=== PATIENT | female | born 1950 | race Caucasian/White ===

== ENCOUNTER 2023-07-17 18:39 | Inpatient (IN) | payer MEDICARE, OTHER ==
[~2023-07-17] VITALS: Ht 167.6 cm; Wt 98.4 kg
[2023-07-17] MEDS ORDERED: CHOL12502 PO (19:56)
[2023-07-17] MEDS ORDERED: LOSA100T31 PO (19:56)
[2023-07-17] MEDS ORDERED: MAGN400T8 PO (19:56)
[2023-07-17] MEDS ORDERED: AMLO-213 PO (19:56)
[2023-07-17] MEDS ORDERED: FAMO20TA8 PO (19:56)
[2023-07-17] MEDS ORDERED: BISA10SU11 RC (19:56)
[2023-07-17] MEDS ORDERED: B CO1TAB6 PO (19:56)
[2023-07-17] MEDS ORDERED: ASPI-1169 PO (19:56)
[2023-07-17] MEDS ORDERED: MINE133E RC (19:56)
[2023-07-17] MEDS ORDERED: ACET325T53 PO (19:56)
[2023-07-17] MEDS ORDERED: MAGN400O6 PO ×2 (19:56)
[2023-07-17] MEDS ORDERED: METO-357 PO (19:56)
[2023-07-17] MEDS ORDERED: MIRT-90 PO (19:56)
[2023-07-17] MEDS ORDERED: OXYC5TAB3 PO (19:56)
[2023-07-17] MEDS ORDERED: NIFE-34 PO (19:56)
[2023-07-17] MEDS ORDERED: VITS42.53 TP (19:56)
[2023-07-17 20:02] LABS: BASOPHILS % (AUTO) 0.4 % (0.0-2.0); EOSINOPHILS # (AUTO) 0.1 K/uL (0.0-0.7); EOSINOPHILS % (AUTO) 1.1 % (0.0-6.0); HEMATOCRIT 44 % (33-45); HEMOGLOBIN 14.8 g/dL (11.5-14.8); LYMPHOCYTES # (AUTO) 2.8 K/uL (0.8-4.8); LYMPHOCYTES % (AUTO) 36.2 % (20.0-44.0); MEAN CORPUSCULAR HEMOGLOBIN 30 PG (26.0-33.0); MEAN CORPUSCULAR HGB CONC 33 g/dl (31.0-36.0); MEAN CORPUSCULAR VOLUME 90 fL (82-100); MONOCYTES # (AUTO) 0.6 K/uL (0.1-1.30); MONOCYTES % (AUTO) 7.8 % (2.0-12.0); NEUTROPHILS # (AUTO) 4.3 K/uL (1.8-8.9); NEUTROPHILS % (AUTO) 54.5 % (43.0-81.0); PLATELET COUNT (AUTO) 150 K/uL (150-450); RED BLOOD CELL COUNT(AUTO) 4.92 MIL/uL (4.0-5.2); RED CELL DISTRIBUTION WIDTH 14.5 % (11.5-15.0); WHITE BLOOD COUNT (AUTO) 7.8 K/uL (4.3-11.0)
[2023-07-17 20:14] LABS: CALCIUM, SERUM 8.9 mg/dL (8.5-10.1); CARBON DIOXIDE 30 mmol/L (21-32); CHLORIDE 107 mmol/L (98-107); CREATININE 1.3 mg/dL (0.6-1.3); GLUCOSE 96 mg/dL (74-106); POTASSIUM 3.5 mmol/L (3.5-5.1); SODIUM SERUM 141 mmol/L (136-145); UREA NITROGEN, BLOOD 25 mg/dL (7-18)
[2023-07-17 20:15] LABS: APPEARANCE,URINE CLEAR (CLEAR); BILIRUBIN,URINE NEGATIVE (NEGATIVE); BLOOD, URINE NEGATIVE Ery/uL (NEGATIVE); COLOR,URINE YELLOW (YELLOW); KETONES,URINE NEGATIVE (NEGATIVE); LEUKOCYTE ESTERASE ,URINE 2+ (NEGATIVE); NITRITE, URINE POSITIVE (NEGATIVE); PROTEIN,URINE NEGATIVE (NEGATIVE); UGLUCOSE NEGATIVE (NEGATIVE); UROBILINOGEN,URINE 0.2 EU/dL (0.2)
[2023-07-17] MEDS ORDERED: ACETAMINOPHEN ES 500 MG TABLET ONE (20:21)
[2023-07-17 20:29] LABS: AMPHETAMINE, URINE NEGATIVE (NEGATIVE); BARBITURATE, URINE NEGATIVE (NEGATIVE); BENZODIAZEPINE, URINE NEGATIVE (NEGATIVE); CANNABINOID, URINE NEGATIVE (NEGATIVE); COCCAINE, URINE NEGATIVE (NEGATIVE); OPIATE, URINE NEGATIVE (NEGATIVE); PHENCYCLIDINE SCREEN,URINE NEGATIVE (NEGATIVE)
[2023-07-17] MEDS: ACETAMINOPHEN ES 500 MG TABLET PO ONE (20:36)
[2023-07-17 20:37] LABS: ALANINE AMINOTRANSFERASE 30 U/L (12-78); ALBUMIN 3.4 g/dL (3.4-5.0); ALCOHOL, BLOOD < 3 mg/dL (0-10); ALKALINE PHOSPHATASE 115 U/L (46-116); ASPARTATE AMINOTRANSFERASE 32 U/L (15-37); BILIRUBIN,DIRECT 0.2 mg/dL (0.0-0.2); BILIRUBIN,TOTAL 0.6 mg/dL (0.2-1.0); TOTAL PROTEIN, SERUM 7.8 g/dL (6.4-8.2)
[2023-07-17 20:38] LABS: ACETAMINOPHEN <10 ug/ml (10-30); SALICYLATE 1.2 mg/dL (2.8-20.0)
[2023-07-17 20:49] LABS: ADD URINE CULTURE YES; BACTERIA,URINE 4+ /HPF (None Seen); RBC,URINE 0-2 /HPF (0-2); SQUAMOUS EPITHELIAL CELL,UR 0-2 /HPF (None Seen); WBC,URINE 21-50 /HPF (0-3)
[2023-07-17] MEDS: NITROFURANTOIN/MONOHYDRATE MACROCRYSTALS 100 MG CAPSULE PO ONE (21:00)
[2023-07-17] MEDS ORDERED: BISACODYL SUPP (10 MG) 10 MG/SUPP.RECT SUPP.RECT RC PRN (23:30)
[2023-07-18] MEDS ORDERED: NITROFURANTOIN/MONOHYDRATE MACROCRYSTALS 100 MG CAPSULE ONE (01:13)
[2023-07-18] MEDS ORDERED: QUETIAPINE FUMARATE 25 MG TABLET PO PRN (04:00)
[2023-07-18] MEDS ORDERED: MAGNESIUM HYDROXIDE 30 ML UDC PO PRN (04:00)
[2023-07-18] MEDS ORDERED: MAG HYDROX/AL HYDROX/SIMETH 30 ML UDC PO PRN (04:00)
[2023-07-18] MEDS: BLOOD SUGAR DIAGNOSTIC 1 EACH STRIP IN ONE (04:47)
[2023-07-18] MEDS: ACETAMINOPHEN 325 MG TABLET PO PRN (04:47)
[2023-07-18 08:00] VITALS: BP 98/68; TEMP 97.7; O2SAT 97
[2023-07-18] MEDS: NITROFURANTOIN/MONOHYDRATE MACROCRYSTALS 100 MG CAPSULE PO SCH (08:33)
[2023-07-18] MEDS: ASPIRIN 81 MG TAB.CHEW PO SCH (08:33)
[2023-07-18] MEDS: METOPROLOL SUCCINATE 50 MG TAB.SR.24H PO SCH (08:35)
[2023-07-18] MEDS: AMLODIPINE BESYLATE 10 MG TABLET PO SCH (08:35)
[2023-07-18] MEDS: VITAMINS A AND D 56.7 GM TUBE TP SCH (09:00)
[2023-07-18 16:00] VITALS: BP 127/82; TEMP 98.2; O2SAT 98
[2023-07-18 20:00] VITALS: BP_SYST 110; BP_SYST 134; BP_DIAS 65; BP_DIAS 70; TEMP 97.8; TEMP 98.4; O2SAT 97; O2SAT 98
[2023-07-18] MEDS: QUETIAPINE FUMARATE 25 MG TABLET PO SCH (21:54)
[2023-07-18] MEDS: FAMOTIDINE (20 MG) 20 MG TABLET PO SCH (21:54)
[2023-07-19 07:17] LABS: BASOPHILS % (AUTO) 0.6 % (0.0-2.0); EOSINOPHILS # (AUTO) 0.1 K/uL (0.0-0.7); EOSINOPHILS % (AUTO) 1.3 % (0.0-6.0); HEMATOCRIT 40 % (33-45); HEMOGLOBIN 13.5 g/dL (11.5-14.8); LYMPHOCYTES % (AUTO) 40.6 % (20.0-44.0); MEAN CORPUSCULAR HEMOGLOBIN 31 PG (26.0-33.0); MEAN CORPUSCULAR HGB CONC 34 g/dl (31.0-36.0); MEAN CORPUSCULAR VOLUME 90 fL (82-100); MONOCYTES # (AUTO) 0.7 K/uL (0.1-1.30); MONOCYTES % (AUTO) 10.1 % (2.0-12.0); NEUTROPHILS # (AUTO) 3.5 K/uL (1.8-8.9); NEUTROPHILS % (AUTO) 47.4 % (43.0-81.0); PLATELET COUNT (AUTO) 157 K/uL (150-450); RED BLOOD CELL COUNT(AUTO) 4.39 MIL/uL (4.0-5.2); RED CELL DISTRIBUTION WIDTH 14.2 % (11.5-15.0); WHITE BLOOD COUNT (AUTO) 7.3 K/uL (4.3-11.0)
[2023-07-19 07:42] LABS: CARBON DIOXIDE 26 mmol/L (21-32); CHLORIDE 109 mmol/L (98-107); GLUCOSE 95 mg/dL (74-106); POTASSIUM 3.7 mmol/L (3.5-5.1); SODIUM SERUM 141 mmol/L (136-145); UREA NITROGEN, BLOOD 22 mg/dL (7-18)
[2023-07-19 07:50] LABS: CHOLESTEROL 135 mg/dL (<200); HDL CHOLESTEROL 64 mg/dL (40-60); LDL 56 mg/dL (0-99); TRIGLYCERIDES 66 mg/dL (30-150)
[2023-07-19] MEDS: OXCARBAZEPINE 150 MG TABLET PO SCH (15:52)
[2023-07-19 20:00] VITALS: BP 144/96; TEMP 98.5; O2SAT 96
[2023-07-20 08:00] VITALS: BP 140/84; TEMP 98.6; O2SAT 96
[2023-07-20 16:00] VITALS: BP 125/50; TEMP 98.4; O2SAT 96
[2023-07-20 20:50] VITALS: BP 128/79; TEMP 98.2; O2SAT 96
[2023-07-21 08:00] VITALS: BP 148/96; TEMP 98.8; O2SAT 96
[2023-07-21 15:30] VITALS: BP 137/84; TEMP 98.1; O2SAT 97
[2023-07-21] MEDS: QUETIAPINE FUMARATE 25 MG TABLET PO SCH (21:04)
[2023-07-21 21:53] VITALS: BP 113/66; TEMP 98.4; O2SAT 97
[2023-07-22 08:00] VITALS: BP 145/87; TEMP 97.9; O2SAT 96
[2023-07-22 16:00] VITALS: BP 137/87; TEMP 97.9; O2SAT 99
[2023-07-22 20:03] VITALS: BP 126/80; TEMP 97.9; O2SAT 97
[2023-07-22 20:45] VITALS: BP 126/80; TEMP 97.9; O2SAT 97
[2023-07-22] MEDS: ZOLPIDEM TARTRATE 5 MG TABLET PO PRN (20:54)
[2023-07-23 08:00] VITALS: BP 149/91; TEMP 98.1; O2SAT 98
[2023-07-23 16:00] VITALS: BP 136/89; TEMP 98.1; O2SAT 96
[2023-07-23 20:00] VITALS: BP 138/92; TEMP 97.8; O2SAT 99
[2023-07-24 07:39] LABS: BASOPHILS % (AUTO) 0.6 % (0.0-2.0); EOSINOPHILS # (AUTO) 0.1 K/uL (0.0-0.7); EOSINOPHILS % (AUTO) 1.4 % (0.0-6.0); HEMATOCRIT 40 % (33-45); HEMOGLOBIN 13.3 g/dL (11.5-14.8); LYMPHOCYTES # (AUTO) 2.9 K/uL (0.8-4.8); LYMPHOCYTES % (AUTO) 38.6 % (20.0-44.0); MEAN CORPUSCULAR HEMOGLOBIN 30 PG (26.0-33.0); MEAN CORPUSCULAR HGB CONC 33 g/dl (31.0-36.0); MEAN CORPUSCULAR VOLUME 90 fL (82-100); MONOCYTES # (AUTO) 0.7 K/uL (0.1-1.30); MONOCYTES % (AUTO) 9.4 % (2.0-12.0); NEUTROPHILS # (AUTO) 3.7 K/uL (1.8-8.9); PLATELET COUNT (AUTO) 164 K/uL (150-450); RED BLOOD CELL COUNT(AUTO) 4.44 MIL/uL (4.0-5.2); RED CELL DISTRIBUTION WIDTH 14.4 % (11.5-15.0); WHITE BLOOD COUNT (AUTO) 7.4 K/uL (4.3-11.0)
[2023-07-24 08:14] LABS: MAGNESIUM 1.9 mg/dL (1.8-2.4); PHOSPHORUS 3.6 mg/dL (2.5-4.9)
[2023-07-24 08:35] VITALS: BP 147/98
[2023-07-24 08:37] LABS: ALANINE AMINOTRANSFERASE 20 U/L (12-78); ALBUMIN 3.1 g/dL (3.4-5.0); ALKALINE PHOSPHATASE 112 U/L (46-116); ASPARTATE AMINOTRANSFERASE 18 U/L (15-37); BILIRUBIN,TOTAL 0.5 mg/dL (0.2-1.0); CALCIUM, SERUM 9.1 mg/dL (8.5-10.1); CARBON DIOXIDE 27 mmol/L (21-32); CHLORIDE 107 mmol/L (98-107); CREATININE 1.3 mg/dL (0.6-1.3); GLUCOSE 94 mg/dL (74-106); POTASSIUM 3.5 mmol/L (3.5-5.1); SODIUM SERUM 140 mmol/L (136-145); TOTAL PROTEIN, SERUM 7.1 g/dL (6.4-8.2); UREA NITROGEN, BLOOD 29 mg/dL (7-18)
== END 2023-07-24 14:05 | DRG 885 ==
LOC: ER 18:46 → GPS 07-18 00:57
PROVIDERS: ADMIT Psychiatry & Neurology Psychiatry; ATTEND Nurse Practitioner Acute Care
DX: F29 Unspecified psychosis not due to a substance or known physiological condition (principal); B19.20 Unspecified viral hepatitis C without hepatic coma; N39.0 Urinary tract infection, site not specified; F03.918 Unspecified dementia, unspecified severity, with other behavioral disturbance; F03.92 Unspecified dementia, unspecified severity, with psychotic disturbance; F03.93 Unspecified dementia, unspecified severity, with mood disturbance; F03.94 Unspecified dementia, unspecified severity, with anxiety; G45.9 Transient cerebral ischemic attack, unspecified; F39 Unspecified mood [affective] disorder; K21.9 Gastro-esophageal reflux disease without esophagitis; J44.9 Chronic obstructive pulmonary disease, unspecified; I73.9 Peripheral vascular disease, unspecified; M48.00 Spinal stenosis, site unspecified; M50.90 Cervical disc disorder, unspecified, unspecified cervical region; F41.9 Anxiety disorder, unspecified; M50.30 Other cervical disc degeneration, unspecified cervical region; M48.02 Spinal stenosis, cervical region; E78.5 Hyperlipidemia, unspecified; M19.90 Unspecified osteoarthritis, unspecified site; Z95.0 Presence of cardiac pacemaker; Z86.73 Personal history of transient ischemic attack (TIA), and cerebral infarction without residual deficits; Z79.899 Other long term (current) drug therapy; I49.5 Sick sinus syndrome; Z86.79 Personal history of other diseases of the circulatory system; G89.29 Other chronic pain; I10 Essential (primary) hypertension; Z73.6 Limitation of activities due to disability; B96.89 Other specified bacterial agents as the cause of diseases classified elsewhere; F32.A Depression, unspecified; R42 Dizziness and giddiness
CPT/HCPCS: 36415; 80048-TC; 80053-TC; 80061-TC; 80076-TC; 81001; 82962-TC; 83735-TC; 84100-TC; 85025-TC; 87081-TC; 87086-TC; 97112-TC; 97116-TC; 97530-TC; G0480

== ENCOUNTER 2024-06-18 15:07 | Inpatient (IN) | payer MEDICARE, OTHER ==
[~2024-06-18] VITALS: Ht 167.6 cm; Wt 81.6 kg
[~2024-06-18 15:07] MED LIST: ACET325T53 PO; AMLO-213 PO; ASPI-1169 PO; B CO1TAB6 PO; BISA10SU11 RC; CHOL12502 PO; FAMO20TA8 PO; LOSA100T31 PO; MAGN400O6 PO; MAGN400T8 PO; METO-357 PO; MINE133E RC; NIFE-34 PO; OXYC5TAB3 PO; VITS42.53 TP
[2024-06-18] MEDS ORDERED: OLANZAPINE 10 MG VIAL IM ONE (15:30)
[2024-06-18] MEDS ORDERED: LORAZEPAM INJ 2 MG/ML VIAL ONE (15:31)
[2024-06-18 15:33] LABS: BASOPHILS # (AUTO) 0.1 K/uL (0.0-0.2); BASOPHILS % (AUTO) 0.8 % (0.0-2.0); EOSINOPHILS # (AUTO) 0.1 K/uL (0.0-0.7); EOSINOPHILS % (AUTO) 0.8 % (0.0-6.0); HEMATOCRIT 43 % (33-45); HEMOGLOBIN 14.7 g/dL (11.5-14.8); LYMPHOCYTES # (AUTO) 3.4 K/uL (0.8-4.8); LYMPHOCYTES % (AUTO) 45.2 % (20.0-44.0); MEAN CORPUSCULAR HEMOGLOBIN 32 PG (26.0-33.0); MEAN CORPUSCULAR HGB CONC 34 g/dl (31.0-36.0); MEAN CORPUSCULAR VOLUME 94 fL (82-100); MONOCYTES # (AUTO) 0.8 K/uL (0.1-1.30); MONOCYTES % (AUTO) 10.8 % (2.0-12.0); NEUTROPHILS # (AUTO) 3.1 K/uL (1.8-8.9); NEUTROPHILS % (AUTO) 42.4 % (43.0-81.0); PLATELET COUNT (AUTO) 154 K/uL (150-450); RED BLOOD CELL COUNT(AUTO) 4.59 MIL/uL (4.0-5.2); RED CELL DISTRIBUTION WIDTH 14.4 % (11.5-15.0); WHITE BLOOD COUNT (AUTO) 7.4 K/uL (4.3-11.0)
[2024-06-18] MEDS: LORAZEPAM INJ 2 MG/ML VIAL IM ONE (15:40)
[2024-06-18 15:46] LABS: CALCIUM, SERUM 9.5 mg/dL (8.5-10.1); CARBON DIOXIDE 29 mmol/L (21-32); CHLORIDE 103 mmol/L (98-107); CREATININE 1.2 mg/dL (0.6-1.3); GLUCOSE 99 mg/dL (74-106); POTASSIUM 3.9 mmol/L (3.5-5.1); SODIUM SERUM 140 mmol/L (136-145); UREA NITROGEN, BLOOD 32 mg/dL (7-18)
[2024-06-18] MEDS: OLANZAPINE 10 MG VIAL IM ONE (15:46)
[2024-06-18 15:52] LABS: ALANINE AMINOTRANSFERASE 25 U/L (12-78); ALBUMIN 3.1 g/dL (3.4-5.0); ALCOHOL, BLOOD < 3 mg/dL (0-10); ALKALINE PHOSPHATASE 86 U/L (46-116); ASPARTATE AMINOTRANSFERASE 38 U/L (15-37); BILIRUBIN,DIRECT 0.2 mg/dL (0.0-0.2); BILIRUBIN,TOTAL 0.4 mg/dL (0.2-1.0); TOTAL PROTEIN, SERUM 7.6 g/dL (6.4-8.2)
[2024-06-18 15:59] LABS: ACETAMINOPHEN 0 ug/ml (10-30); SALICYLATE 1.8 mg/dL (2.8-20.0)
[2024-06-18 16:30] LABS: AMPHETAMINE, URINE NEGATIVE (NEGATIVE); BARBITURATE, URINE NEGATIVE (NEGATIVE); BENZODIAZEPINE, URINE NEGATIVE (NEGATIVE); CANNABINOID, URINE NEGATIVE (NEGATIVE); COCCAINE, URINE NEGATIVE (NEGATIVE); OPIATE, URINE NEGATIVE (NEGATIVE); PHENCYCLIDINE SCREEN,URINE NEGATIVE (NEGATIVE)
[2024-06-18 16:33] LABS: APPEARANCE,URINE SLIGHTLY CLOUDY (CLEAR); BILIRUBIN,URINE NEGATIVE (NEGATIVE); BLOOD, URINE TRACE-INTA Ery/uL (NEGATIVE); COLOR,URINE YELLOW (YELLOW); KETONES,URINE NEGATIVE (NEGATIVE); LEUKOCYTE ESTERASE ,URINE NEGATIVE (NEGATIVE); NITRITE, URINE POSITIVE (NEGATIVE); PROTEIN,URINE NEGATIVE (NEGATIVE); UGLUCOSE NEGATIVE (NEGATIVE); UROBILINOGEN,URINE 0.2 EU/dL (0.2)
[2024-06-18] MEDS ORDERED: GABA-532 PO (17:15)
[2024-06-18] MEDS ORDERED: NA P133E RC (17:15)
[2024-06-18] MEDS ORDERED: CHOL200059 PO (17:15)
[2024-06-18] MEDS ORDERED: TRIA1TAB98 PO (17:15)
[2024-06-18] MEDS ORDERED: CRAN425C6 PO (17:15)
[2024-06-18] MEDS ORDERED: DIVA250T4 PO (17:15)
[2024-06-18] MEDS ORDERED: DIVA125T2 PO (17:15)
[2024-06-18] MEDS ORDERED: FAMO40TA7 PO (17:15)
[2024-06-18] MEDS ORDERED: NIFE90TA61 PO (17:15)
[2024-06-18 17:31] LABS: ADD URINE CULTURE YES; BACTERIA,URINE 4+ /HPF (None Seen); SQUAMOUS EPITHELIAL CELL,UR 0-2 /HPF (None Seen)
[2024-06-18] MEDS ORDERED: CEFTRIAXONE 1GM BAG (ER ONLY) 50 ML IV ONE (20:29)
[2024-06-18] MEDS: CEFTRIAXONE 1GM BAG (ER ONLY) 50 ML IV ONE (20:47)
[2024-06-18] MEDS ORDERED: MAGNESIUM HYDROXIDE 30 ML UDC PO PRN (23:30)
[2024-06-18] MEDS ORDERED: oxyCODONE IR immediate release 5 MG TABLET PO PRN (23:30)
[2024-06-18] MEDS ORDERED: ACETAMINOPHEN 325 MG TABLET PO PRN (23:30)
[2024-06-18] MEDS ORDERED: NA PHOS,M-B/NA PHOS,DI-BA 1 EA ENEMA RC PRN (23:30)
[2024-06-18] MEDS ORDERED: BISACODYL SUPP (10 MG) 10 MG/SUPP.RECT SUPP.RECT RC PRN (23:30)
[2024-06-19] MEDS: GABAPENTIN 100 MG CAPSULE PO SCH (09:00)
[2024-06-19] MEDS ORDERED: Medication Not On Formulary EA (Cranberry Extract (Cranberry) 450 MG) PO SCH (09:00)
[2024-06-19] MEDS: DIVALPROEX SODIUM 125 MG TABLET.DR PO SCH (09:00)
[2024-06-19] MEDS ORDERED: CEPHALEXIN MONOHYDRATE 500 MG CAPSULE PO ONE (09:27)
[2024-06-19] MEDS ORDERED: CHOLECALCIFEROL 1,000 UNIT TABLET (VIT D3) ONE (09:27)
[2024-06-19] MEDS ORDERED: ASPIRIN 81 MG TAB.CHEW ONE (09:28)
[2024-06-19] MEDS ORDERED: METOPROLOL SUCCINATE 25 MG TAB.SR.24H ONE (09:28)
[2024-06-19] MEDS: CEPHALEXIN MONOHYDRATE 500 MG CAPSULE PO SCH (09:56)
[2024-06-19] MEDS: ASPIRIN 81 MG TAB.CHEW PO SCH (09:56)
[2024-06-19] MEDS: CHOLECALCIFEROL 1,000 UNIT TABLET (VIT D3) PO SCH (09:57)
[2024-06-19] MEDS: NIFEdipine XL (30MG) 30 MG TAB PO SCH (09:57)
[2024-06-19] MEDS: METOPROLOL SUCCINATE 50 MG TAB.SR.24H PO SCH (09:57)
[2024-06-19] MEDS ORDERED: GABAPENTIN 100 MG CAPSULE ONE (11:35)
[2024-06-19 16:01] VITALS: BP 133/86; TEMP 97.5; O2SAT 99
[2024-06-19] MEDS: QUETIAPINE FUMARATE 25 MG TABLET PO SCH (16:01)
[2024-06-19 20:00] VITALS: BP 124/81; TEMP 97.5; O2SAT 95
[2024-06-19] MEDS: DIVALPROEX SODIUM 250 MG TABLET.DR PO SCH (21:13)
[2024-06-20] VITALS: BP 117/67; TEMP 97.5; O2SAT 95
[2024-06-20 04:00] VITALS: BP 106/57; TEMP 97.5; O2SAT 98
[2024-06-20 08:00] VITALS: BP 103/79; TEMP 99.1; O2SAT 98
[2024-06-20] MEDS: CEFTRIAXONE 1 G in IV D5W 50 ML IV SCH (09:46)
[2024-06-20] MEDS: ENOXAPARIN SODIUM 40 MG/0.4 ML DISP.SYRIN SQ SCH (10:17)
[2024-06-20 11:10] LABS: BASOPHILS % (AUTO) 0.3 % (0.0-2.0); EOSINOPHILS # (AUTO) 0.1 K/uL (0.0-0.7); EOSINOPHILS % (AUTO) 0.7 % (0.0-6.0); HEMATOCRIT 43 % (33-45); HEMOGLOBIN 14.6 g/dL (11.5-14.8); MEAN CORPUSCULAR HEMOGLOBIN 31 PG (26.0-33.0); MEAN CORPUSCULAR HGB CONC 34 g/dl (31.0-36.0); MEAN CORPUSCULAR VOLUME 93 fL (82-100); MONOCYTES # (AUTO) 0.7 K/uL (0.1-1.30); MONOCYTES % (AUTO) 9.8 % (2.0-12.0); NEUTROPHILS # (AUTO) 3.4 K/uL (1.8-8.9); NEUTROPHILS % (AUTO) 47.2 % (43.0-81.0); PLATELET COUNT (AUTO) 158 K/uL (150-450); RED BLOOD CELL COUNT(AUTO) 4.65 MIL/uL (4.0-5.2); RED CELL DISTRIBUTION WIDTH 14.2 % (11.5-15.0); WHITE BLOOD COUNT (AUTO) 7.2 K/uL (4.3-11.0)
[2024-06-20 11:13] LABS: CALCIUM, SERUM 9.4 mg/dL (8.5-10.1); CREATININE 1.2 mg/dL (0.6-1.3); POTASSIUM 4.1 mmol/L (3.5-5.1)
[2024-06-20 11:23] LABS: BILIRUBIN,TOTAL 0.4 mg/dL (0.2-1.0); TOTAL PROTEIN, SERUM 7.2 g/dL (6.4-8.2)
[2024-06-20 12:00] VITALS: BP 102/68; TEMP 97.9; O2SAT 95
[2024-06-20 16:00] VITALS: BP 102/72; TEMP 98.1; O2SAT 100
[2024-06-20 20:00] VITALS: BP 97/60; TEMP 97.7; O2SAT 100
[2024-06-21] VITALS: BP 105/69; TEMP 97.5; O2SAT 95
[2024-06-21 04:00] VITALS: BP 96/71; TEMP 97.9; O2SAT 95
[2024-06-21 08:00] VITALS: BP 101/73; TEMP 97.5; O2SAT 97
[2024-06-21] MEDS: NITROFURANTOIN/MONOHYDRATE MACROCRYSTALS 100 MG CAPSULE PO SCH (13:15)
[2024-06-21] MEDS ORDERED: NITR100C6 PO (13:43)
[2024-06-21 16:00] VITALS: BP 116/86; TEMP 97.7; O2SAT 97
== END 2024-06-21 17:41 | DRG 178 ==
LOC: ER 15:13 → GPS 18:11 → TRANSITION 06-19 04:15 → TELE-TD 06-19 12:03 → TELE1 06-19 13:10 → MEDSG1 06-21 09:48
PROVIDERS: ADMIT Internal Medicine
DX: U07.1 COVID-19 (principal); F03.911 Unspecified dementia, unspecified severity, with agitation; F03.92 Unspecified dementia, unspecified severity, with psychotic disturbance; F03.93 Unspecified dementia, unspecified severity, with mood disturbance; F03.94 Unspecified dementia, unspecified severity, with anxiety; N39.0 Urinary tract infection, site not specified; N17.9 Acute kidney failure, unspecified; Z16.12 Extended spectrum beta lactamase (ESBL) resistance; K21.9 Gastro-esophageal reflux disease without esophagitis; M81.0 Age-related osteoporosis without current pathological fracture; M50.90 Cervical disc disorder, unspecified, unspecified cervical region; M48.02 Spinal stenosis, cervical region; I10 Essential (primary) hypertension; E78.5 Hyperlipidemia, unspecified; I25.10 Atherosclerotic heart disease of native coronary artery without angina pectoris; F41.9 Anxiety disorder, unspecified; Z86.79 Personal history of other diseases of the circulatory system; Z95.0 Presence of cardiac pacemaker; Z86.73 Personal history of transient ischemic attack (TIA), and cerebral infarction without residual deficits; I73.9 Peripheral vascular disease, unspecified; M19.90 Unspecified osteoarthritis, unspecified site; F31.9 Bipolar disorder, unspecified; Z79.82 Long term (current) use of aspirin; Z79.899 Other long term (current) drug therapy; J44.9 Chronic obstructive pulmonary disease, unspecified; Z86.16 Personal history of COVID-19; Z78.9 Other specified health status; B19.20 Unspecified viral hepatitis C without hepatic coma; E86.0 Dehydration; Z73.6 Limitation of activities due to disability; R42 Dizziness and giddiness; F39 Unspecified mood [affective] disorder; M50.30 Other cervical disc degeneration, unspecified cervical region
CPT/HCPCS: 36415; 71045-TC; 80048-TC; 80053-TC; 80076-TC; 81001; 85025-TC; 85378-TC; 86140-TC; 87040-TC; 87081-TC; 87086-TC; 87186-TC; A4223; G0378; G0480; J0696; J1650; J2060; J3490; J7050; J7060